=== PATIENT | female | born 1960 | race Native Hawaiian/Other Pacific Islander ===

== ENCOUNTER 2017-12-06 08:19 | Outpatient (CLI) | payer OTHER | END 2017-12-06 19:46 | disposition home or self-care (01) | LOC: NM 08:19 | DX: Z01.810 Encounter for preprocedural cardiovascular examination (principal) | CPT/HCPCS: A9500 ==

== ENCOUNTER 2019-08-06 08:48 | Outpatient (CLI) | payer OTHER, BC | END 2019-08-06 19:56 | disposition home or self-care (01) | LOC: MAMMO 08:48 | DX: Z12.31 Encounter for screening mammogram for malignant neoplasm of breast (principal) ==